=== PATIENT | female | born 1975 | race Caucasian/White ===

== ENCOUNTER 2021-08-25 11:58 | Emergency (ER) | payer BC, OTHER ==
[~2021-08-25 11:58] MED LIST: Iopamidol 300 61% 100 ML VIAL FS ONE
[2021-08-25 13:08] LABS: BHCG - Serum Negative (NEGATIVE); Pregs Control Background? CLEAR/WHITE (CLR/WHITE); Pregs Control Bar Appear? YES (CONTROL BAR)
[2021-08-25 13:11] LABS: ALT (SGPT) 20 U/L (8-55); AST (SGOT) 47 U/L (5-34); Albumin 2.8 g/dL (3.5-5.0); Alkaline Phosphatase 203 U/L (40-110); Anion Gap 12 mmol/L (10-20); BUN (Urea Nitrogen) 9 mg/dL (7.0-18.7); Bilirubin, Total 2.5 mg/dL (0.2-1.2); Calc. Creatinine Clearance 0 mL/min (70-130); Calcium 8.4 mg/dL (7.8-10.44); Carbon Dioxide 24 mmol/L (22-29); Chloride 103 mmol/L (98-107); Glucose 216 mg/dL (70-105); Lipase 56 U/L (8-78); Potassium 4.1 mmol/L (3.5-5.1); Protein, Total 6.8 g/dL (6.0-8.3); Sodium 135 mmol/L (136-145)
[2021-08-25 13:14] LABS: #Basophils 0.1 10x3/uL (0.0-0.2); #Eosinphils 0.5 10x3/uL (0.0-0.5); #Neutrophils 5.5 10x3/uL (1.5-8.4); %Basophils 0.7 % (0.0-2.0); %Eosinophils 5.6 % (0.0-6.0); %Lymphocytes 20.5 % (18.0-47.0); %Monocytes 11.7 % (0.0-10.0); %Neutrophils 61.2 % (40.0-75.0); Hemoglobin 13.4 g/dL (12.0-15.5); Mean Corpuscular HGB CONC 34.7 g/dL (32.0-36.0); Mean Corpuscular Hemoglobin 33.8 pg (27.0-33.0); Mean Corpuscular Volume 97.2 fl (81.6-98.3); Mean Platelet Volume 9.8 fl (7.4-10.4); Platelet Count 162 10x3/uL (150-450); RBC Distribution Width 13.2 % (11.5-14.5); Red Blood Cell (RBC) Count 3.97 10x6/uL (3.90-5.03); White Blood Cell (WBC) Count 8.9 10x3/uL (3.5-10.5)
== END 2021-08-25 15:08 | disposition home or self-care (01) ==
LOC: CSHERS 11:58
DX: K74.60 Unspecified cirrhosis of liver (principal); E11.9 Type 2 diabetes mellitus without complications; K21.9 Gastro-esophageal reflux disease without esophagitis
CPT/HCPCS: 36415; 74177; 80053; 83690; 84703; 85025; Q9967

== ENCOUNTER 2021-09-21 10:28 | Outpatient (CLI) | payer BC | END 2021-09-21 10:29 | disposition home or self-care (01) | LOC: CSHLAB 10:28 | PROVIDERS: ATTEND Internal Medicine Gastroenterology | DX: Z20.822 Contact with and (suspected) exposure to COVID-19 (principal); K74.60 Unspecified cirrhosis of liver | CPT/HCPCS: U0003; U0005 ==

== ENCOUNTER 2021-09-24 06:19 | Day surgery (SDC) | payer BC ==
[2021-09-21 11:19] VITALS: BMI 51.6
[2021-09-24] MEDS ORDERED: PROPOFOL 40 ML ONE (08:25)
[2021-09-24] MEDS ORDERED: Lidocaine 2% MPF 10 ML AMP (For Epidural Use) ONE (08:25)
[2021-09-24] MEDS ORDERED: Benzocaine 20% Spray 60 ML CAN FS SCH (08:30)
[2021-09-24] MEDS ORDERED: Glycopyrrolate 0.2 MG/ML 5 ML SYRINGE ONE (09:00)
== END 2021-09-24 09:49 | disposition home or self-care (01) ==
LOC: CSHSDC 06:19
PROVIDERS: ATTEND Internal Medicine Gastroenterology
PROC: 0DJ08ZZ Inspection of Upper Intestinal Tract, Via Natural or Artificial Opening Endoscopic (ICD-10-PCS; principal; 2021-09-24)
DX: K31.7 Polyp of stomach and duodenum (principal); K74.60 Unspecified cirrhosis of liver; K76.0 Fatty (change of) liver, not elsewhere classified; K76.6 Portal hypertension; K31.89 Other diseases of stomach and duodenum; E11.9 Type 2 diabetes mellitus without complications; E28.2 Polycystic ovarian syndrome; E66.9 Obesity, unspecified; Z68.43 Body mass index [BMI] 50.0-59.9, adult; Z79.84 Long term (current) use of oral hypoglycemic drugs; Z88.6 Allergy status to analgesic agent
CPT/HCPCS: J2704

== ENCOUNTER 2022-02-15 16:25 | Emergency (ER) | payer BC ==
[2022-02-15 17:47] LABS: SARS-CoV-2 NAA Rapid Test Not Detected (NotDetected)
[2022-02-15 18:16] LABS: #Basophils 0.1 10x3/uL (0.0-0.2); #Eosinphils 0.5 10x3/uL (0.0-0.5); #Monocytes 0.9 10x3/uL (0.0-1.1); #Neutrophils 3.7 10x3/uL (1.5-8.4); %Basophils 0.9 % (0.0-2.0); %Eosinophils 6.9 % (0.0-6.0); %Lymphocytes 23.2 % (18.0-47.0); %Monocytes 13.6 % (0.0-10.0); %Neutrophils 55.3 % (40.0-75.0); Hemoglobin 12.8 g/dL (12.0-15.5); Mean Corpuscular Volume 97.3 fl (81.6-98.3); Mean Platelet Volume 10.2 fl (7.4-10.4); Platelet Count 117 10x3/uL (150-450); RBC Distribution Width 13.5 % (11.5-14.5); Red Blood Cell (RBC) Count 3.76 10x6/uL (3.90-5.03); White Blood Cell (WBC) Count 6.7 10x3/uL (3.5-10.5)
[2022-02-15 18:29] LABS: INR-International Normal Ratio 1.2; PTT 25.1 sec (22.0-33.0); Prothrombin Time 13.4 sec (9.5-12.1)
[2022-02-15 18:30] LABS: ALT (SGPT) 20 U/L (8-55); AST (SGOT) 50 U/L (5-34); Albumin 2.9 g/dL (3.5-5.0); Alkaline Phosphatase 273 U/L (40-110); Anion Gap 10 mmol/L (10-20); BUN (Urea Nitrogen) 12 mg/dL (7.0-18.7); Bilirubin, Total 2.3 mg/dL (0.2-1.2); Calc. Creatinine Clearance 0 mL/min (70-130); Calcium 9.1 mg/dL (7.8-10.44); Carbon Dioxide 24 mmol/L (22-29); Chloride 108 mmol/L (98-107); Estimated GFR 91; Glucose 104 mg/dL (70-105); Magnesium 1.6 mg/dL (1.6-2.6); Potassium 3.9 mmol/L (3.5-5.1); Protein, Total 6.9 g/dL (6.0-8.3); Sodium 138 mmol/L (136-145)
[2022-02-15 18:52] LABS: Acetaminophen Less than 10.0 mcg/mL (10.0-30.0); Alcohol Less than 10 mg/dL (Less than 10); CK (CPK) 125 U/L (29-168); Salicylate Less than 8.0 mg/dL (15.0-30.0)
== END 2022-02-15 18:58 | disposition home or self-care (01) ==
LOC: CSHERS 16:25
DX: R53.1 Weakness (principal); E11.9 Type 2 diabetes mellitus without complications; K21.9 Gastro-esophageal reflux disease without esophagitis; Z20.822 Contact with and (suspected) exposure to COVID-19
CPT/HCPCS: 70450; 71045; 80053; 80307; 82140; 82550; 83605; 83735; 83880; 84443; 84484; 85025; 85610; 85730; 86140; 93005; U0002

== ENCOUNTER 2022-04-01 07:01 | Day surgery (SDC) | payer BC ==
[2022-03-30 14:28] VITALS: BMI 46.0
[2022-04-01] MEDS ORDERED: PROPOFOL 20 ML ONE ×2 (07:22)
[2022-04-01] MEDS ORDERED: Lidocaine 2% MPF 10 ML AMP (For Epidural Use) ONE (07:22)
== END 2022-04-01 10:05 | disposition home or self-care (01) ==
LOC: CSHSDC 07:01
PROVIDERS: ATTEND Internal Medicine Gastroenterology
PROC: 0DJ08ZZ Inspection of Upper Intestinal Tract, Via Natural or Artificial Opening Endoscopic (ICD-10-PCS; principal; 2022-04-01)
DX: K76.6 Portal hypertension (principal); K29.70 Gastritis, unspecified, without bleeding; K31.7 Polyp of stomach and duodenum; K74.60 Unspecified cirrhosis of liver; K31.89 Other diseases of stomach and duodenum; K76.0 Fatty (change of) liver, not elsewhere classified; E11.9 Type 2 diabetes mellitus without complications; E66.9 Obesity, unspecified; F41.9 Anxiety disorder, unspecified; F32.A Depression, unspecified; Z68.42 Body mass index [BMI] 45.0-49.9, adult
CPT/HCPCS: J2704